=== PATIENT | male | born 1985 | race Caucasian/White ===

== ENCOUNTER 2025-07-25 13:30 | Emergency (ER) | payer SELFPAY ==
[2025-07-25 13:38] VITALS: BP 153/72; PULSE 73; RESP 16; TEMP 36.7; O2SAT 98
--- NOTE | 2025-07-25 15:23 | ED.NAVMDI ---
HPI - Nausea/Vomiting/Diarrhea General Chief complaint: Nausea/Vomiting/Diarrhea Stated complaint: [facility]- prostate, GB, kidney CA, vomiting blood Time Seen by Provider: 07/25/25 15:23 Source: patient Mode of arrival: ambulatory Limitations: no limitations History of Present Illness HPI Narrative: Patient is a 39 y/o male who presents to the ED with c/o hematemesis. Patient states he has had intermittent episodes of hematemesis and rectal bleeding for the past 1 month. Patient was at work today and had an episode of N/V with blood in his emesis. States he was sweaty and lightheaded at that time. He was then told he needed to leave work and be evaluated at an ED. Reports mild upper abdominal pain. Denies current nausea. Denies current dizziness/lightheadedness. Patient reports history of prostate, gallbladder, kidney cancer. Has been on chemo and radiation, but is not currently receiving active treatment. States he sees 4 different oncologists at [facility]. Has an appointment with ABEL Knox with [facility] on Sep 02. Is supposed to have upper and lower endoscopy at that time to be evaluated for the recent bleeding episodes. Related Data Allergies Allergy/AdvReac Type Severity Reaction Status Date / Time Fish Containing Products Allergy Severe Anaphylaxis Verified 07/25/25 13:33 Review of Systems Review of Systems: All systems reviewed & are unremarkable except as noted in HPI. All systems reviewed & are unremarkable except as noted in HPI and below Exam Narrative: GENERAL: Mildly ill appearing, well-nourished, non-toxic, in no acute distress. HEAD: Normocephalic, atraumatic. RESPIRATORY: Airway patent, respirations nonlabored. No distress CARDIOVASCULAR: Regular rate and rhythm MUSCULOSKELETAL: Moves all extremities. No gross deformities. SKIN: Warm, dry, normal color. NEURO: A&O X3. Speech clear. Cranial nerves II-XII grossly intact. Steady gait. No ataxic movements. PSYCHIATRIC: Depressed/anxious mood. Normal interaction. Course Vital Signs Vital signs: Vital Signs Temperature 98.1 F 07/25/25 13:38 Pulse Rate 73 07/25/25 13:38 Respiratory Rate 16 07/25/25 13:38 Blood Pressure 153/72 H 07/25/25 13:38 Pulse Oximetry 98 07/25/25 13:38 Oxygen Delivery Room Air 07/25/25 13:38 Temperature 97.6 F 07/25/25 15:56 Pulse Rate 84 07/25/25 15:56 Respiratory Rate 17 07/25/25 15:56 Blood Pressure 132/84 07/25/25 15:56 Pulse Oximetry 99 07/25/25 15:56 Oxygen Delivery Room Air 07/25/25 13:38 MDM MDM Narrative Medical decision making narrative: Patient presented to ED with reported hematemesis. States this has been an ongoing issue for him over the past 1 month. Reported history of multiple different types of cancer, seen at [facility]. States he was told he needed to come to the ED today by his safety worker. Vital signs are stable upon arrival. Patient in no acute navya distress. No evidence of hemodynamic instability. Patient expressed concern about not having insurance currently and having heavy medical bills from multiple facilities. He states the bleeding has been an ongoing issue and he is scheduled to see GI and receive scope for this in August. He does not want any blood or imaging workup at this time. He states he would prefer to follow up with his cancer team at [facility]. Discussed that I cannot rule out a life-threatening emergency/GI bleed without obtaining some form of workup. Patient voiced understanding, but again does not wish to receive any workup at this time. Is understanding of the risks. Will have patient sign out against medical advice given that I cannot rule out emergency. Patient is agreeable to this. AMA paperwork was signed. Patient advised to have close follow-up with his cancer team. Given strict return precautions. Advised he can return at any time to resume evaluation. Patient agreeable. Discharged in stable condition. Differential Diagnosis Differential Diagnosis: Esophageal perforation, Loreta-Rivero syndrome, gastritis, esophagitis, variceal bleeding, gastroenteritis Medical Records I have reviewed the following patient records and this information was taken into consideration when formulating the assessment and plan.: previous labs, previous ER visits, previous hospitalizations and previous clinic visits Discharge Plan Discharge Clinical Impression: Multiple malignancies Hematemesis Qualifiers: Nausea presence: with nausea Qualified Code(s): K92.0 - Hematemesis Patient Disposition: Left Against Medical Advice Condition: Guarded Prognosis Additional Instructions: Follow-up closely with your oncology team for further evaluation. Return to an ED if you experience worsening or severe symptoms. You can return here at any time to resume evaluation. Take Protonix daily. Zofran as needed for nausea. Patient Language: Kiswahili Prescriptions: New pantoprazole [Protonix] 40 mg tablet,delayed release (DR/EC) 40 mg PO HS 28 Days Qty: 28 0RF ondansetron 4 mg tablet,disintegrating 4 mg PO Q8H PRN (Reason: nausea and vomiting) Qty: 15 0RF Follow-up/Referrals: Beltran,Jose Eduardo Duarte [Primary Care Provider, Unknown]
--- NOTE | 2025-07-25 15:45 | PC.NURSE ---
pt refused vitals at this time.
[2025-07-25 15:56] VITALS: BP 132/84; PULSE 84; RESP 17; TEMP 36.4; O2SAT 99
--- NOTE | 2025-07-25 16:07 | PC.NURSE ---
Patient alert and oriented x 3. Patient refusing any further treatment. Risks and consequences of leaving explained to the patient. Patient verbalizes an understanding of information provided. Patient signed AMA form.
== END 2025-07-25 16:33 | disposition left against medical advice (07) ==
PROVIDERS: Emergency Provider Physician Assistant; PCP Physician Assistant
DX: K92.0 Hematemesis (principal); C61 Malignant neoplasm of prostate; C64.9 Malignant neoplasm of unspecified kidney, except renal pelvis; C23 Malignant neoplasm of gallbladder
CPT/HCPCS: 99283